=== PATIENT | male | born 1950 | race Caucasian/White ===

== ENCOUNTER 2016-05-29 08:41 | Day surgery (SDC) | payer BC ==
--- NOTE | ~2016-05-29 | EGD ---
EGD REPORT [facility] [address] [address] NAME: DIMITRIS GRIFFIN : 54 STATUS : REG [facility]#: [id number] AGE: 66 ADM/REG DATE : 05/29/16 MR#: [id number] REPORT SERV DATE: 05/29/16 DICTATED BY: DAVID PIERSON DATE: 05/29/16 REPORT STATUS : Draft [facility]: [facility] DATE: 05/29/16 [facility] Patient Name: Dimitris Griffin Date of : 1950 Attending MD: DAVID PIERSON MD Procedure Date No Time: 05/29/2016 Procedure: Colonoscopy Indications: High risk colon cancer surveillance: Personal history of colonic polyps Medicines: as per anesthesia Complications: No immediate complications. Procedure: Pre-Anesthesia Assessment: - ASA Grade Assessment: II - A patient with mild systemic disease. After I obtained informed consent, the scope was passed under direct vision. Throughout the procedure, the patient's blood pressure, pulse, and oxygen saturations were monitored continuously. The PCF [id number] was introduced through the anus and advanced to the cecum, identified by appendiceal orifice and ileocecal valve. The colonoscopy was performed without difficulty. The patient tolerated the procedure. The quality of the bowel preparation was adequate to identify polyps. Findings: The perianal and digital rectal examinations were normal. A few small and large-mouthed diverticula were found in the sigmoid colon and in the descending colon. Internal hemorrhoids were found during endoscopy and were mild. Impression: - Diverticulosis in the sigmoid colon and in the descending colon. - Internal hemorrhoids. Recommendation: - Repeat colonoscopy in 5 years for surveillance. Procedure Code(s): --- Professional --- 41143, Colonoscopy, flexible, proximal to splenic flexure; diagnostic, with or without collection of specimen(s) by brushing or washing, with or without colon decompression (separate procedure) Diagnosis Code(s): --- Professional --- K64.8, Other hemorrhoids K57.30, Diverticulosis of large intestine without EGD REPORT [address] [facility] [place] [address] NAME: DIMITRIS GRIFFIN : [birth year] STATUS : REG [facility] [place] PAT#: [id number] AGE: 66 ADM/REG DATE : 05/29/16 MR#: [id number] REPORT SERV DATE: 05/29/16 DICTATED BY: DAVID PIERSON. DATE: 05/29/16 REPORT STATUS : Draft TRANSCRIBED BY: [employer] DATE: 05/29/16 perforation or abscess without bleeding Z86.010, Personal history of colonic polyps CPT copyright 2013 [employer]. All rights reserved. The codes documented in this report are preliminary and upon break and load operator review may be revised to meet current compliance requirements. DAVID PIERSON MD 05/29/2016 12:08 PM This report has been signed electronically. Number of Addenda: 0 Note Initiated On: 05/29/2016 11:43 AM Scope Withdrawal Time 0 hours 7 minutes [address] [place] [address] AUGUSTINE Santacruz [id number]
[~2016-05-29 08:41] MED LIST: PT DENIES HOME MEDS
== END 2016-05-29 23:59 | disposition home or self-care (01) ==
LOC: DMU 08:41
PROVIDERS: Internal Medicine Gastroenterology
PROC: 0DJD8ZZ Inspection of Lower Intestinal Tract, Via Natural or Artificial Opening Endoscopic (ICD-10-PCS; principal; 2016-05-29 10:30)
DX: Z12.11 Encounter for screening for malignant neoplasm of colon (principal); K64.8 Other hemorrhoids; F17.210 Nicotine dependence, cigarettes, uncomplicated; K57.30 Diverticulosis of large intestine without perforation or abscess without bleeding; Z86.010 Personal history of colon polyps; Z90.89 Acquired absence of other organs; Z79.899 Other long term (current) drug therapy